=== PATIENT | female | born 1960 | race Asian ===

== ENCOUNTER → 2017-12-10 08:10 | Outpatient (CLI) | payer OTHER, SELFPAY ==
[2017-12-10 09:48] LABS: Creatinine Urine Random 72.6 mg/dL
[2017-12-10 09:50] LABS: Alanine Aminotransferase 30 IU/L (9-52); Albumin 4.2 g/dL (3.5-5.0); Albumin Globulin Ratio 1.2 (1.0-2.8); Alkaline Phosphatase 79 U/L (38-126); Aspartate Aminotransferase 25 IU/L (14-36); BUN Creatinine Ratio 18.3 (6-22); Bilirubin Total 1.1 mg/dL (0.2-1.3); Blood Urea Nitrogen 11 mg/dL (7-17); Calcium 9.1 mg/dL (8.4-10.2); Carbon Dioxide 28 mmol/L (22-32); Chloride 98 mmol/L (98-107); Cholesterol 175 mg/dL (140-199); Estimated Glomerular Filt Rate > 60.0 mL/min (>60); Globulin 3.4 g/dL (1.7-4.1); Glucose 117 mg/dL (70-100); HDL Cholesterol 46 mg/dL (40-60); HEMOLYSIS < 15 (0-50); LDL Cholesterol Calculated 96 mg/dL (<100); Potassium 4.4 mmol/L (3.4-5.1); Sodium 134 mmol/L (137-145); Total Protein 7.6 g/dL (6.3-8.2); Triglycerides 164 mg/dL (35-150)
[2017-12-10 09:54] LABS: Microalbumi Creatinin Ratio Ur 12.3 ug/mg CR (<30); Microalbumin Urine Random 0.9 mg/dL (0-1.6)
[2017-12-10 10:52] LABS: Hemoglobin A1C% w Est Avg Glu 6.3 % (4.0-6.0)
== END ==
PROVIDERS: PCP Family Medicine; Visit Provider Family Medicine
DX: E11.9 Type 2 diabetes mellitus without complications (principal)
CPT/HCPCS: 36415; 80053; 80061; 82043; 82570; 83036

== ENCOUNTER → 2018-01-23 15:06 | Outpatient (CLI) | payer OTHER, SELFPAY ==
--- NOTE | 2018-01-23 | DI.MG.S_ITS ---
BILATERAL DIGITAL SCREENING MAMMOGRAM 3D/2D WITH CAD: 01/23/2018 CLINICAL: Routine screening. Family history of breast cancer. Comparison is made to exams dated: 01/03/2017 mammogram, 12/08/2015 mammogram, and 11/22/2014 mammogram - [facility]. The tissue of both breasts is heterogeneously dense. This may lower the sensitivity of mammography. Current study was also evaluated with a Computer Aided Detection (CAD) system. There are post operative findings in the left breast. No significant masses, calcifications, or other findings are seen in either breast. There has been no significant interval change. IMPRESSION: NEGATIVE There is no mammographic evidence of malignancy. A 1 year screening mammogram is recommended. This exam was interpreted at Station ID: [id number]. NOTE: For mammograms, a report in lay terms will be sent to the patient. Approximately 15% of breast malignancies will not be visualized mammographically. In the management of a palpable breast mass, a negative mammogram must not discourage biopsy of a clinically suspicious lesion. Electronically Signed By: Robin herbert/luzmaria:01/24/2018 09:28:41 letter sent: Normal Exam ACR BI-RADS Category 1: Negative 3341F
== END ==
PROVIDERS: Family Provider Family Medicine; PCP Family Medicine; Visit Provider Family Medicine
DX: Z12.31 Encounter for screening mammogram for malignant neoplasm of breast (principal); Z80.3 Family history of malignant neoplasm of breast
CPT/HCPCS: 77063; 77067

== ENCOUNTER → 2018-04-08 09:14 | Outpatient (CLI) | payer OTHER, SELFPAY ==
[2018-04-08 10:39] LABS: Hemoglobin A1C% w Est Avg Glu 6.6 % (4.0-6.0)
== END ==
PROVIDERS: Family Medicine; PCP Internal Medicine; Visit Provider Internal Medicine
DX: E11.9 Type 2 diabetes mellitus without complications (principal)
CPT/HCPCS: 36415; 83036

== ENCOUNTER → 2018-08-05 08:38 | Outpatient (CLI) | payer OTHER, SELFPAY ==
[2018-08-05 10:16] LABS: Hemoglobin A1C% w Est Avg Glu 6.7 % (4.0-6.0)
== END ==
PROVIDERS: PCP Family Medicine; Visit Provider Family Medicine
DX: E11.9 Type 2 diabetes mellitus without complications (principal)
CPT/HCPCS: 36415; 83036

== ENCOUNTER → 2018-11-11 08:03 | Outpatient (CLI) | payer OTHER, SELFPAY ==
[2018-11-11 08:58] LABS: Hemoglobin A1C% w Est Avg Glu 6.6 % (4.0-6.0)
[2018-11-11 09:20] LABS: Creatinine Urine Random 44.1 mg/dL
[2018-11-11 09:24] LABS: Microalbumin Urine Random 1.5 mg/dL (0-1.6)
== END ==
PROVIDERS: PCP Family Medicine; Visit Provider Family Medicine
DX: E11.9 Type 2 diabetes mellitus without complications (principal)
CPT/HCPCS: 36415; 82043; 82570; 83036

== ENCOUNTER → 2019-02-24 07:29 | Outpatient (CLI) | payer OTHER, SELFPAY ==
[2019-02-24 09:22] LABS: Hemoglobin A1C% w Est Avg Glu 6.4 % (4.0-6.0)
== END ==
PROVIDERS: PCP Family Medicine; Visit Provider Family Medicine
DX: E11.9 Type 2 diabetes mellitus without complications (principal)
CPT/HCPCS: 36415; 83036

== ENCOUNTER → 2019-02-27 16:00 | Outpatient (CLI) | payer OTHER, SELFPAY ==
--- NOTE | 2019-02-27 | DI.MG.S_ITS ---
BILATERAL DIGITAL SCREENING MAMMOGRAM 3D/2D WITH CAD: 02/27/2019 CLINICAL: Routine screening. Family history of breast cancer. Comparison is made to exams dated: 01/23/2018 mammogram, 01/03/2017 mammogram, and 12/08/2015 mammogram - [facility]. The tissue of both breasts is heterogeneously dense. This may lower the sensitivity of mammography. Current study was also evaluated with a Computer Aided Detection (CAD) system. Parenchymal and skin scarring of the lateral left breast is stable to prior comparison exams. No significant masses, calcifications, or other findings are seen in either breast. There has been no significant interval change. IMPRESSION: There is no mammographic evidence of malignancy. A 1 year screening mammogram is recommended. This exam was interpreted at Station ID: [id number]. NOTE: For mammograms, a report in lay terms will be sent to the patient. Approximately 15% of breast malignancies will not be visualized mammographically. In the management of a palpable breast mass, a negative mammogram must not discourage biopsy of a clinically suspicious lesion. Electronically Signed By: Danny Almanza M.D. ecl/:02/27/2019 17:22:15 letter sent: Normal Exam ACR BI-RADS Category 2: Benign Finding(s) 3342F
== END ==
PROVIDERS: PCP Family Medicine; Visit Provider Family Medicine
DX: Z12.31 Encounter for screening mammogram for malignant neoplasm of breast (principal); Z80.3 Family history of malignant neoplasm of breast
CPT/HCPCS: 77063; 77067

== ENCOUNTER → 2019-10-27 08:35 | Outpatient (CLI) | payer OTHER, SELFPAY ==
[2019-10-27 10:07] LABS: Cholesterol 189 mg/dL (140-199); Glucose 131 mg/dL (80-110); HDL Cholesterol 44 mg/dL (40-60); LDL Cholesterol Calculated 111 mg/dL (<100); Triglycerides 169 mg/dL (35-150); VLDL Cholesterol Calculated 34 mg/dL (2-30)
[2019-10-27 10:11] LABS: Hemoglobin A1C% w Est Avg Glu 6.6 % (4.0-6.0)
== END ==
PROVIDERS: PCP Family Medicine; Referring Provider Family Medicine; Visit Provider Family Medicine
DX: E11.9 Type 2 diabetes mellitus without complications (principal); E78.5 Hyperlipidemia, unspecified
CPT/HCPCS: 36415; 80061; 82947; 83036

== ENCOUNTER → 2020-02-19 07:01 | Outpatient (CLI) | payer OTHER, SELFPAY ==
[2020-02-19 09:00] LABS: Hemoglobin A1C% w Est Avg Glu 6.7 % (4.0-6.0)
[2020-02-19 09:20] LABS: Microalbumin Urine Random 0.7 mg/dL (0-1.6)
== END ==
PROVIDERS: PCP Family Medicine; Referring Provider Family Medicine; Visit Provider Family Medicine
DX: E11.9 Type 2 diabetes mellitus without complications (principal)
CPT/HCPCS: 36415; 82043; 82570; 83036

== ENCOUNTER → 2020-07-01 16:25 | Outpatient (CLI) | payer OTHER, SELFPAY ==
[2020-07-01 17:48] LABS: Alanine Aminotransferase 19 IU/L (<35); Albumin 4.4 g/dL (3.5-5.0); Albumin Globulin Ratio 1.3 (1.0-2.8); Alkaline Phosphatase 88 U/L (38-126); Aspartate Aminotransferase 26 IU/L (14-36); Bilirubin Total 0.5 mg/dL (0.2-1.3); Blood Urea Nitrogen 17 mg/dL (7-17); Calcium 9.8 mg/dL (8.4-10.2); Carbon Dioxide 28 mmol/L (22-32); Chloride 98 mmol/L (98-107); Estimated Glomerular Filt Rate > 60.0 mL/min (>60); Globulin 3.5 g/dL (1.7-4.1); Glucose 89 mg/dL (80-110); HEMOLYSIS < 15 (0-50); Hemoglobin A1C% w Est Avg Glu 6.4 % (4.0-6.0); Potassium 4.6 mmol/L (3.4-5.1); Sodium 133 mmol/L (137-145); Total Protein 7.9 g/dL (6.3-8.2)
== END ==
PROVIDERS: PCP Family Medicine; Referring Provider Family Medicine; Visit Provider Family Medicine
DX: E11.9 Type 2 diabetes mellitus without complications (principal)
CPT/HCPCS: 36415; 80053; 83036

== ENCOUNTER → 2020-07-22 17:09 | Outpatient (CLI) | payer OTHER, SELFPAY ==
--- NOTE | 2020-07-22 17:10 | DI.MG.S_ITS ---
BILATERAL DIGITAL SCREENING MAMMOGRAM 3D/2D WITH CAD: 07/22/2020 CLINICAL: Routine screening. Family history of breast cancer. Comparison is made to exams dated: 02/27/2019 mammogram, 01/23/2018 mammogram, 01/03/2017 mammogram, 12/08/2015 mammogram, and 11/22/2014 mammogram - [facility]. The tissue of both breasts is heterogeneously dense. This may lower the sensitivity of mammography. Current study was also evaluated with a Computer Aided Detection (CAD) system. There are benign post operative findings in the left breast. No significant masses, calcifications, or other findings are seen in either breast. There has been no significant interval change. IMPRESSION: BENIGN There is no mammographic evidence of malignancy. A 1 year screening mammogram is recommended. This exam was interpreted at Station ID: [id number]. NOTE: For mammograms, a report in lay terms will be sent to the patient. Approximately 15% of breast malignancies will not be visualized mammographically. In the management of a palpable breast mass, a negative mammogram must not discourage biopsy of a clinically suspicious lesion. Electronically Signed By: Jhonny Bell M.D. [facility] [place]07/23/2020 07:49:40 letter sent: Normal Exam ACR BI-RADS Category 2: Benign Finding(s) 3342F
== END ==
PROVIDERS: PCP Family Medicine; Referring Provider Family Medicine; Visit Provider Family Medicine
DX: Z12.31 Encounter for screening mammogram for malignant neoplasm of breast (principal); Z80.3 Family history of malignant neoplasm of breast
CPT/HCPCS: 77063; 77067

== ENCOUNTER → 2020-08-29 10:36 | Outpatient (CLI) | payer OTHER, SELFPAY ==
[2020-08-29] MEDS: COVID-19 VACC #1, MRNA(MOD) 100 MCG/0.5 ML VIAL IM (10:41)
== END ==
PROVIDERS: PCP Family Medicine; Visit Provider Internal Medicine
DX: Z23 Encounter for immunization (principal)
CPT/HCPCS: 0011A; 91301

== ENCOUNTER → 2020-09-26 14:32 | Outpatient (CLI) | payer OTHER, SELFPAY ==
[2020-09-26] MEDS: COVID-19 VACC #2, MRNA(MOD) 100 MCG/0.5 ML VIAL IM (14:41)
== END ==
PROVIDERS: PCP Family Medicine; Visit Provider Internal Medicine
DX: Z23 Encounter for immunization (principal)
CPT/HCPCS: 0012A; 91301

== ENCOUNTER → 2020-10-09 16:10 | Outpatient (CLI) | payer OTHER, SELFPAY ==
[2020-10-09 18:23] LABS: Hemoglobin A1C% w Est Avg Glu 6.3 % (4.0-6.0)
== END ==
PROVIDERS: PCP Family Medicine; Referring Provider Family Medicine; Visit Provider Family Medicine
DX: E11.9 Type 2 diabetes mellitus without complications (principal)
CPT/HCPCS: 36415; 83036

== ENCOUNTER → 2020-12-03 08:03 | Outpatient (CLI) | payer OTHER, SELFPAY ==
[2020-12-03 12:05] LABS: COVID19 -Nasal RAPID Negative (Negative)
== END ==
PROVIDERS: PCP Family Medicine; Visit Provider Physician Assistant
DX: Z01.812 Encounter for preprocedural laboratory examination (principal); Z20.822 Contact with and (suspected) exposure to COVID-19
CPT/HCPCS: 87635

== ENCOUNTER 2020-12-05 11:33 | Day surgery (SDC) | payer OTHER, SELFPAY ==
--- NOTE | 2020-12-05 12:03 | PM.HP.1 ---
History of Present Illness History of Present Illness Date Patient Seen: 12/05/20 Chief complaint: [facility] Narrative: 60 Years Old Female seen today for consideration of a screening colonoscopy. Last colonoscopy 2009, normal. There have been no lower GI symptoms suggesting disease such as change in bowel habits, bleeding, abdominal pain or anemia. There's been no family history of colon cancer or colon polyps. Overall health issues have been stable, including no major cardiac events for at least 6 weeks. Past Medical History: No systemic HRT DIABETES MELLITUS, TYPE II HYPERTENSION HYPERLIPIDEMIA Past Surgical History: Colonoscopy, 2009, normal Family History: Father: age 75 - Heart Disease, Stroke, Hypertension, Hyperlipidemia Mother: age 84 - Diabetes, Hypertension, Hyperlipidemia Siblings: 63 y o sister had a biopsy breast possible cancer, had 6 months of chemo, no surgery. And is cancer free. 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 Education: College Graduate Meds Home Medications and Allergies Home Medications Medication Instructions Recorded Confirmed Type CHOLECALCIFEROL (VITAMIN D3) #0 02/09/13 History (Vitamin D3) Metformin Hydrochloride 1,000 mg #0 02/09/13 History (GLUCOPHAGE) Vitamin E (VITAMIN E) #0 02/09/13 History [CENTRUM] #0 02/09/13 History [PREVASTATIN] #0 02/09/13 History aspirin 81 mg chewable tablet 81 mg PO QDAY #0 02/09/13 12/05/20 History Allergies Allergy/AdvReac Type Severity Reaction Status Date / Time Penicillins Allergy Unknown Unverified 09/07/17 13:09 Review of Systems Review of Systems Narrative: See HPI. Exam Narrative Exam Narrative: General: well developed, well nourished, in no acute distress, Head: normocephalic and atraumatic, Lungs: normal respiratory effort, clear bilaterally to auscultation, no wheezes rales or rhonchi. Heart: normal rate and regular rhythm, no murmurs, rubs, gallops, or clicks, Abdomen: abdomen soft and non-tender without masses, organomegaly, or abdominal wall hernias, bowel sounds positive. Skin: intact without suspicious lesions or rashes, Psych: alert and cooperative; normal mood and affect; normal attention span and concentration; cognition, remote and recent memory appear to be intact, Assessment & Plan Assessment & Plan narrative: 1. Screening for colon cancer Plan for colonoscopy. The nature and character of the procedure as well as anticipated results were discussed. The possibility of not completing the procedure was also discussed. Possible complications including aspiration pneumonia, bleeding, perforation and reaction to medications either for sedation or preparation and missed lesions were discussed. Questions were answered and proceeding to the colonoscopy was elected. Informed consent signed. I sincerely appreciate the referral allowing me to participate in this patient's care. Please contact me with any questions or concerns.
--- NOTE | 2020-12-05 12:04 | PM.OP.ENDO ---
Operative Date/Time/Diagnoses Date of procedure: 12/05/20 Procedure Notes SCOAP/Timeout: 1:47 p.m. Procedure in detail: ENDOSCOPIST: Cindy Motta MD Sedation RN: Phillip Mcallister RN Sedation start time: 1:48 p.m. Sedation end time: 2:07 p.m. PROCEDURE: Colonoscopy INDICATIONS: 1. Screening for colon cancer MEDICATION: Levsin 0.125 mg sublingual, incremental doses of Versed and fentanyl until appropriate level sedation achieved. ASA CLASS: 2 CECAL WITHDRAWAL TIME: 10 minutes COMPLICATIONS: None. EXTENT OF PROCEDURE: Cecum. QUALITY OF PREP: Good with portions of liquid stool. PROCEDURE: Prior to insertion of the colonoscope, a digital rectal examination was accomplished with circumferential palpation of the distal rectal mucosa without significant findings being noted. The high-definition pediatric colonoscope was passed into the rectum in the usual fashion and advanced over to the cecum without difficulty. The ileocecal valve, appendiceal stoma, and medial wall all could be inspected and no abnormalities were seen. ASCENDING COLON: As the colonoscope was withdrawn, care was taken to expose and inspect the haustral folds and no abnormalities were seen. HEPATIC FLEXURE: Normal, no polyps, diverticula or other abnormalities. TRANSVERSE COLON: Normal, no polyps, diverticula or other abnormalities. DESCENDING COLON: Normal, no polyps, diverticula or other abnormalities. SIGMOID COLON: Normal, no polyps, diverticula or other abnormalities. RECTUM: Normal. J maneuver was produced. There was no significant perianal disease. The J maneuver was broken. The remainder of the rectum was inspected and there was no external hemorrhoid disease. The scope was withdrawn. IMPRESSION: 1. Normal colonoscopy PLAN: 1. Repeat colonoscopy in 10 years. The possibility of a missed lesion including a malignancy has been discussed with the patient previously. Potential alarm symptoms have been discussed and should be reported immediately.
[2020-12-05 13:09] VITALS: BP 157/66; PULSE 75; RESP 15; TEMP 36.1; O2SAT 100; BMI 21.5
[2020-12-05] MEDS: LACTATED RINGERS 1,000 ML 200 ML IV (13:23)
[2020-12-05 14:10] VITALS: BP 118/58; PULSE 82; RESP 14; TEMP 37.3; O2SAT 99
[2020-12-05] MEDS: fentaNYL 250 MCG/5 ML INJ IV (14:10)
[2020-12-05] MEDS: MIDAZOLAM 5 MG/5 ML VIAL IV (14:11)
[2020-12-05 14:15] VITALS: BP 132/59; PULSE 77; RESP 12; O2SAT 99
[2020-12-05 14:22] VITALS: PULSE 71; RESP 14; TEMP 36.4; O2SAT 100
[2020-12-05 14:36] VITALS: BP 134/64; PULSE 67; RESP 13; TEMP 36.4; O2SAT 100
== END 2020-12-05 14:37 | disposition home or self-care (01) ==
PROVIDERS: PCP Family Medicine; Referring Provider Student in an Organized Health Care Education/Training Program; Visit Provider Student in an Organized Health Care Education/Training Program
PROC: 0DJD8ZZ Inspection of Lower Intestinal Tract, Via Natural or Artificial Opening Endoscopic (ICD-10-PCS; CPT 45378; principal; 2020-12-05 13:45)
DX: Z12.11 Encounter for screening for malignant neoplasm of colon (principal); E11.9 Type 2 diabetes mellitus without complications; Z79.84 Long term (current) use of oral hypoglycemic drugs; I10 Essential (primary) hypertension; E78.5 Hyperlipidemia, unspecified
CPT/HCPCS: 45378; J2250; J3010

== ENCOUNTER → 2021-01-31 08:43 | Outpatient (CLI) | payer OTHER, SELFPAY ==
[2021-01-31 09:37] LABS: Hemoglobin A1C% w Est Avg Glu 7.2 % (4.0-6.0)
[2021-01-31 09:43] LABS: Cholesterol 185 mg/dL (140-199); HDL Cholesterol 51 mg/dL (40-60); LDL Cholesterol Calculated 109 mg/dL (<100); Triglycerides 126 mg/dL (35-150); VLDL Cholesterol Calculated 25 mg/dL (2-30)
== END ==
PROVIDERS: PCP Family Medicine; Referring Provider Family Medicine; Visit Provider Family Medicine
DX: E11.9 Type 2 diabetes mellitus without complications (principal); E78.5 Hyperlipidemia, unspecified; I10 Essential (primary) hypertension
CPT/HCPCS: 36415; 80061; 83036

== ENCOUNTER → 2021-06-02 16:18 | Outpatient (CLI) | payer OTHER, SELFPAY ==
[2021-06-02 17:42] LABS: Creatinine Urine Random 29.5 mg/dL
[2021-06-02 17:46] LABS: Microalbumi Creatinin Ratio Ur 71.1 ug/mg CR (<30); Microalbumin Urine Random 2.1 mg/dL (0-1.6)
[2021-06-02 18:25] LABS: Hemoglobin A1C% w Est Avg Glu 7.7 % (4.0-6.0)
== END ==
PROVIDERS: PCP Family Medicine; Referring Provider Family Medicine; Visit Provider Family Medicine
DX: E11.9 Type 2 diabetes mellitus without complications (principal); Z78.9 Other specified health status
CPT/HCPCS: 36415; 82043; 82570; 83036; 87522

== ENCOUNTER → 2021-09-17 16:29 | Outpatient (CLI) | payer OTHER, SELFPAY ==
[2021-09-17 19:17] LABS: Hemoglobin A1C% w Est Avg Glu 6.8 % (4.0-6.0)
[2021-09-17 19:41] LABS: Hep C Virus Ab w/Reflex Quant NEGATIVE s/c (NEGATIVE)
== END ==
PROVIDERS: PCP Family Medicine; Referring Provider Family Medicine; Visit Provider Family Medicine
DX: E11.9 Type 2 diabetes mellitus without complications (principal); Z78.9 Other specified health status
CPT/HCPCS: 36415; 83036; 86803

== ENCOUNTER → 2021-11-18 15:54 | Outpatient (CLI) | payer OTHER, SELFPAY ==
--- NOTE | 2021-11-18 15:56 | DI.MG.S_ITS ---
BILATERAL DIGITAL SCREENING MAMMOGRAM 3D/2D WITH CAD: 11/18/2021 CLINICAL: Routine screening. Family history of breast cancer. Comparison is made to exams dated: 07/22/2020 mammogram, 02/27/2019 mammogram, and 01/23/2018 mammogram - . The tissue of both breasts is heterogeneously dense. This may lower the sensitivity of mammography. Current study was also evaluated with a Computer Aided Detection (CAD) system. There are benign post operative findings in the left breast. No significant masses, calcifications, or other findings are seen in either breast. There has been no significant interval change. IMPRESSION: BENIGN There is no mammographic evidence of malignancy. A 1 year screening mammogram is recommended. This exam was interpreted at Station ID: [id number]. NOTE: For mammograms, a report in lay terms will be sent to the patient. Approximately 15% of breast malignancies will not be visualized mammographically. In the management of a palpable breast mass, a negative mammogram must not discourage biopsy of a clinically suspicious lesion. Electronically Signed By: Dawood vance/luzmaria:11/19/2021 09:01:41 letter sent: Normal Exam ACR BI-RADS Category 2: Benign Finding(s) 3342F
== END ==
PROVIDERS: PCP Family Medicine; Referring Provider Family Medicine; Visit Provider Family Medicine
DX: Z12.31 Encounter for screening mammogram for malignant neoplasm of breast (principal); Z80.3 Family history of malignant neoplasm of breast
CPT/HCPCS: 77063; 77067

== ENCOUNTER → 2022-02-24 08:32 | Outpatient (CLI) | payer OTHER, SELFPAY ==
[2022-02-24 09:53] LABS: Hemoglobin A1C% w Est Avg Glu 6.7 % (4.0-6.0)
[2022-02-24 10:11] LABS: Alanine Aminotransferase 26 IU/L (<35); Albumin 4.4 g/dL (3.5-5.0); Albumin Globulin Ratio 1.3 (1.0-2.8); Alkaline Phosphatase 78 U/L (38-126); Aspartate Aminotransferase 29 IU/L (14-36); BUN Creatinine Ratio 15.8 (6-22); Bilirubin Total 0.7 mg/dL (0.2-1.3); Blood Urea Nitrogen 9 mg/dL (7-17); Calcium 9.5 mg/dL (8.4-10.2); Carbon Dioxide 28 mmol/L (22-32); Chloride 95 mmol/L (98-107); Estimated Glomerular Filt Rate > 60 mL/min (>60); Globulin 3.5 g/dL (1.7-4.1); Glucose 127 mg/dL (80-110); HEMOLYSIS < 15 (0-50); Potassium 4.9 mmol/L (3.4-5.1); Sodium 133 mmol/L (137-145); Total Protein 7.9 g/dL (6.3-8.2)
[2022-02-27 16:55] LABS: LDL Cholesterol Direct 124 mg/dL (<100)
== END ==
PROVIDERS: PCP Family Medicine; Referring Provider Family Medicine; Visit Provider Family Medicine
DX: E11.9 Type 2 diabetes mellitus without complications (principal); E78.5 Hyperlipidemia, unspecified; I10 Essential (primary) hypertension
CPT/HCPCS: 36415; 80053; 80061; 83036; 83721

== ENCOUNTER → 2022-07-22 16:08 | Outpatient (CLI) | payer OTHER, SELFPAY ==
[2022-07-22 18:24] LABS: Creatinine Urine Random 39.4 mg/dL
[2022-07-22 18:28] LABS: Microalbumi Creatinin Ratio Ur 109.1 ug/mg CR (<30); Microalbumin Urine Random 4.3 mg/dL (0-1.6)
[2022-07-22 18:46] LABS: Hep C Virus Ab w/Reflex Quant NEGATIVE s/c (NEGATIVE)
[2022-07-22 19:20] LABS: Hemoglobin A1C% w Est Avg Glu 7.3 % (4.0-6.0)
== END ==
PROVIDERS: PCP Family Medicine; Referring Provider Family Medicine; Visit Provider Family Medicine
DX: E11.9 Type 2 diabetes mellitus without complications (principal); Z78.9 Other specified health status
CPT/HCPCS: 36415; 82043; 82570; 83036; 86803

== ENCOUNTER → 2022-08-23 16:19 | Outpatient (CLI) | payer OTHER, SELFPAY ==
[2022-08-27 16:43] LABS: ANA Screen, IFA Negative (.)
== END ==
PROVIDERS: PCP Family Medicine; Referring Provider Dermatology; Visit Provider Dermatology
DX: L56.4 Polymorphous light eruption (principal)
CPT/HCPCS: 36415; 86038

== ENCOUNTER → 2022-12-11 09:05 | Outpatient (CLI) | payer OTHER, SELFPAY ==
[2022-12-12 09:36] LABS: x Labcorp Estim. Avg Glu (eAG) 160 mg/dL (.); x Labcorp Hemoglobin A1c 7.2 % (4.8-5.6)
== END ==
PROVIDERS: PCP Family Medicine; Referring Provider Family Medicine; Visit Provider Family Medicine
DX: E11.9 Type 2 diabetes mellitus without complications (principal)
CPT/HCPCS: 36415; 83036

== ENCOUNTER → 2023-03-19 08:05 | Outpatient (CLI) | payer OTHER, SELFPAY ==
[2023-03-19 09:29] LABS: Alanine Aminotransferase 28 IU/L (<35); Albumin 4.3 g/dL (3.5-5.0); Albumin Globulin Ratio 1.3 (1.0-2.8); Alkaline Phosphatase 79 U/L (38-126); Aspartate Aminotransferase 30 IU/L (14-36); BUN Creatinine Ratio 18.3 (6-22); Blood Urea Nitrogen 11 mg/dL (7-17); Calcium 9.8 mg/dL (8.4-10.2); Carbon Dioxide 25 mmol/L (22-32); Chloride 97 mmol/L (98-107); Cholesterol 186 mg/dL (140-199); Estimated Glomerular Filt Rate > 60 mL/min (>60); Globulin 3.4 g/dL (1.7-4.1); Glucose 124 mg/dL (80-110); HDL Cholesterol 53 mg/dL (40-60); HEMOLYSIS < 15 (0-50); LDL Cholesterol Calculated 113 mg/dL (<100); Potassium 5.3 mmol/L (3.4-5.1); Sodium 131 mmol/L (137-145); Total Protein 7.7 g/dL (6.3-8.2); Triglycerides 101 mg/dL (35-150); VLDL Cholesterol Calculated 20 mg/dL (2-30)
[2023-03-19 09:58] LABS: TSH w/ Reflex to FT4 1.01 uIU/mL (0.47-4.68)
[2023-03-19 12:15] LABS: Free T4, Direct Thyroxine 1.44 ng/dL (0.78-2.19)
== END ==
PROVIDERS: PCP Family Medicine; Referring Provider Family Medicine; Visit Provider Family Medicine
DX: E11.9 Type 2 diabetes mellitus without complications (principal); Z00.00 Encounter for general adult medical examination without abnormal findings
CPT/HCPCS: 36415; 80053; 80061; 84439; 84443

== ENCOUNTER → 2023-04-12 16:30 | Outpatient (CLI) | payer OTHER, SELFPAY ==
[2023-04-12 17:36] LABS: BUN Creatinine Ratio 22.8 (6-22); Blood Urea Nitrogen 13 mg/dL (7-17); Carbon Dioxide 30 mmol/L (22-32); Chloride 95 mmol/L (98-107); Estimated Glomerular Filt Rate > 60 mL/min (>60); Glucose 105 mg/dL (80-110); HEMOLYSIS < 15 (0-50); Potassium 4.3 mmol/L (3.4-5.1); Sodium 131 mmol/L (137-145)
[2023-04-12 23:15] LABS: Hemoglobin A1C% w Est Avg Glu 7.5 % (4.0-6.0)
== END ==
PROVIDERS: PCP Family Medicine; Referring Provider Family Medicine; Visit Provider Family Medicine
DX: E11.9 Type 2 diabetes mellitus without complications (principal); E87.5 Hyperkalemia
CPT/HCPCS: 36415; 80048; 83036

== ENCOUNTER → 2023-06-29 16:57 | Outpatient (CLI) | payer OTHER, SELFPAY ==
--- NOTE | 2023-06-29 16:59 | DI.RAD.S_ITS ---
PROCEDURE: XR SHOULDER LT MIN 2V INDICATIONS: Left shoulder pain L I TECHNIQUE: 3 views of the shoulder were acquired. COMPARISON: None. FINDINGS: Bones: No fractures or dislocations. No suspicious bony lesions. Visualized ribs appear intact. Soft tissues: No suspicious soft tissue calcifications. IMPRESSION: No acute bony abnormality. No significant degenerative change. Dictated by: Daniel Newell M.D. on 06/30/2023 at 1:14 Approved by: Daniel Newell M.D. on 06/30/2023 at 1:15
== END ==
PROVIDERS: PCP Family Medicine; Referring Provider Nurse Practitioner Family; Visit Provider Nurse Practitioner Family
DX: S46.912A Strain of unspecified muscle, fascia and tendon at shoulder and upper arm level, left arm, initial encounter (principal); X58.XXXA Exposure to other specified factors, initial encounter
CPT/HCPCS: 73030

== ENCOUNTER → 2023-07-21 | Outpatient (CLI) | payer OTHER, SELFPAY ==
--- NOTE | 2023-07-21 | DI.MRI.S_ITS ---
PROCEDURE: MR SHOULDER LT WO CON INDICATIONS: left shoulder pain TECHNIQUE: Noncontrast oblique coronal T2 fast spin echo with fat saturation, oblique sagittal T1 spin echo and T2 fast spin echo with fat saturation, axial T1 spin echo and T2 fast spin echo with fat saturation through the shoulder. COMPARISON: [facility], CR, XR SHOULDER LT MIN 2V, 06/29/2023, 17:05. FINDINGS: Image quality: Excellent. Rotator cuff: There is [id number] supraspinatus, infraspinatus, and subscapularis tendinosis. Low-grade partial-thickness supraspinatus tendon tear from the musculotendinous junction to the footprint. No tendon retraction. Sagittal images demonstrate no rotator cuff muscle atrophy. Bones and bursae: No bone marrow contusions or fractures. Mild acromioclavicular and glenohumeral joint degeneration. The acromion demonstrates conventional anatomy, without an os acromiale. No pathologic subacromial-subdeltoid or subcoracoid bursal fluid is present. Capsule and soft tissues: There is posterior labral tear. Multiple paralabral cyst is seen adjacent to the posterior labrum. There is superior labral fraying. The long head of the biceps tendon demonstrates normal location and morphology. The rotator interval appears irregular. The coracohumeral ligament is thickened. IMPRESSION: 1. [id number] supraspinatus, infraspinatus and subscapularis tendinosis. There is low-grade partial-thickness tear of the supraspinatus tendon. No tendon retraction. No rotator cuff muscle atrophy. 2. Posterior labral tear with multiple paralabral cyst. 3. Mild acromioclavicular and glenohumeral joint degeneration. 4. Irregular rotator interval and thickening of the coracohumeral ligament. The findings are associated with adhesive capsulitis. Recommend clinical correlation. Dictated by: Ciera Connolly M.D. on 07/22/2023 at 13:58 Approved by: Ciera Connolly M.D. on 07/22/2023 at 14:06
== END ==
PROVIDERS: PCP Family Medicine; Referring Provider Pain Medicine Interventional Pain Medicine; Visit Provider Pain Medicine Interventional Pain Medicine
DX: S46.012A Strain of muscle(s) and tendon(s) of the rotator cuff of left shoulder, initial encounter (principal); S43.492A Other sprain of left shoulder joint, initial encounter; M19.012 Primary osteoarthritis, left shoulder; X58.XXXA Exposure to other specified factors, initial encounter
CPT/HCPCS: 73221

== ENCOUNTER → 2023-09-03 08:39 | Outpatient (CLI) | payer OTHER, SELFPAY ==
[2023-09-03 10:09] LABS: Hemoglobin A1C% w Est Avg Glu 7.7 % (4.0-6.0)
[2023-09-03 10:17] LABS: BUN Creatinine Ratio 25.9 (6-22); Blood Urea Nitrogen 14 mg/dL (7-17); Calcium 9.3 mg/dL (8.4-10.2); Carbon Dioxide 28 mmol/L (22-32); Chloride 100 mmol/L (98-107); Estimated Glomerular Filt Rate > 60 mL/min (>60); Glucose 135 mg/dL (80-110); HEMOLYSIS < 15 (0-50); Potassium 4.6 mmol/L (3.4-5.1); Sodium 130 mmol/L (137-145)
== END ==
PROVIDERS: PCP Family Medicine; Referring Provider Family Medicine; Visit Provider Family Medicine
DX: E87.5 Hyperkalemia (principal); E11.9 Type 2 diabetes mellitus without complications
CPT/HCPCS: 36415; 80048; 83036

== ENCOUNTER → 2023-10-10 16:45 | Outpatient (CLI) | payer OTHER, SELFPAY ==
--- NOTE | 2023-10-10 16:46 | DI.MRI.S_ITS ---
PROCEDURE: MR CERVICAL SPINE WO CON INDICATIONS: CERVICAL SPRAIN TECHNIQUE: Noncontrast sagittal T1 spin echo and T2 fast spin echo, sagittal STIR, foraminal oblique sagittal T2 fast spin echo, and axial gradient echo or T2 fast spin echo through the cervical spine. COMPARISON: None. FINDINGS: Image quality: Excellent. Alignment and Curvature: There is normal bony alignment. Bone Marrow: Marrow demonstrates normal overall signal. Spinal Cord: Visualized spinal cord has normal size and signal. No cerebellar tonsillar herniation. Paraspinous Soft Tissues: No paravertebral masses. Prevertebral soft tissues are normal in thickness. C2-C3: Prominent left facet hypertrophy. No canal stenosis. Moderate to severe left foraminal narrowing with a degree of left foraminal C3 nerve root impingement. C3-C4: Prominent right facet hypertrophy. No canal stenosis. Moderate right foraminal narrowing with flattening deformity on the exiting right C4 nerve root. C4-C5: Disc bulge. Mild right foraminal narrowing. No canal stenosis or significant foraminal stenosis. C5-C6: Disc bulge. No canal stenosis. No significant foraminal stenosis. C6-C7: Mild disc bulge. No canal stenosis. Bilateral uncovertebral joint hypertrophy. Left foraminal disc bulge. Moderate to severe left foraminal narrowing with a degree of left foraminal C7 nerve root impingement. C7-T1: No canal stenosis or foraminal stenosis. IMPRESSION: 1. No canal stenosis. 2. No ligamentous injury identified. 3. Bilateral cervical facet arthropathy, prominent on the left at C2-C3 and prominent on the right at C3-C4. 4. There is moderate to severe left foraminal narrowing at C2-C3. There is moderate right foraminal narrowing at C3-C4. There is moderate to severe left foraminal narrowing at C6-C7. Recommend correlation for presence or absence of associated radicular symptoms. Dictated by: Spenser Allan M.D. on 10/11/2023 at 8:36 Approved by: Spenser Allan M.D. on 10/11/2023 at 8:55
== END ==
PROVIDERS: PCP Family Medicine; Referring Provider Pain Medicine Interventional Pain Medicine; Visit Provider Pain Medicine Interventional Pain Medicine
DX: S46.912A Strain of unspecified muscle, fascia and tendon at shoulder and upper arm level, left arm, initial encounter (principal); M47.812 Spondylosis without myelopathy or radiculopathy, cervical region; M48.02 Spinal stenosis, cervical region; X58.XXXA Exposure to other specified factors, initial encounter
CPT/HCPCS: 72141

== ENCOUNTER → 2023-11-12 08:30 | Outpatient (CLI) | payer OTHER, SELFPAY ==
[2023-11-12 09:54] LABS: Hemoglobin A1C% w Est Avg Glu 7.5 % (4.0-6.0)
[2023-11-12 10:23] LABS: Alanine Aminotransferase 26 IU/L (<35); Albumin 4.3 g/dL (3.5-5.0); Albumin Globulin Ratio 1.4 (1.0-2.8); Alkaline Phosphatase 84 U/L (38-126); Aspartate Aminotransferase 25 IU/L (14-36); BUN Creatinine Ratio 19.4 (6-22); Bilirubin Total 0.8 mg/dL (0.2-1.3); Blood Urea Nitrogen 12 mg/dL (7-17); Calcium 9.5 mg/dL (8.4-10.2); Carbon Dioxide 28 mmol/L (22-32); Chloride 98 mmol/L (98-107); Estimated Glomerular Filt Rate > 60 mL/min (>60); Globulin 3.1 g/dL (1.7-4.1); Glucose 160 mg/dL (80-110); HEMOLYSIS < 15 (0-50); Sodium 130 mmol/L (137-145); Total Protein 7.4 g/dL (6.3-8.2)
[2023-11-12 10:24] LABS: Potassium 5.6 mmol/L (3.4-5.1)
== END ==
PROVIDERS: PCP Family Medicine; Referring Provider Family Medicine; Visit Provider Family Medicine
DX: E87.1 Hypo-osmolality and hyponatremia (principal); B35.1 Tinea unguium; E11.9 Type 2 diabetes mellitus without complications
CPT/HCPCS: 36415; 80053; 83036

== ENCOUNTER → 2023-11-24 16:31 | Outpatient (CLI) | payer OTHER, SELFPAY ==
[2023-11-24 17:56] LABS: BUN Creatinine Ratio 28.4 (6-22); Blood Urea Nitrogen 19 mg/dL (7-17); Calcium 9.5 mg/dL (8.4-10.2); Carbon Dioxide 27 mmol/L (22-32); Chloride 97 mmol/L (98-107); Estimated Glomerular Filt Rate > 60 mL/min (>60); Glucose 103 mg/dL (80-110); HEMOLYSIS < 15 (0-50); Potassium 4.7 mmol/L (3.4-5.1); Sodium 129 mmol/L (137-145)
== END ==
PROVIDERS: PCP Family Medicine; Referring Provider Family Medicine; Visit Provider Family Medicine
DX: E87.5 Hyperkalemia (principal)
CPT/HCPCS: 36415; 80048

== ENCOUNTER → 2023-12-22 16:03 | Outpatient (CLI) | payer OTHER, SELFPAY ==
--- NOTE | 2023-12-22 16:04 | DI.US.S_ITS ---
PROCEDURE: US PELVIC COMPLETE INDICATIONS: RIGHT LOWER QUADRANT ABDOMINAL PAIN TECHNIQUE: Real-time scanning was performed of the pelvic organs, with image documentation. Additional endovaginal scanning was necessary due to incomplete visualization of the adnexal and endometrial structures by transabdominal scanning. COMPARISON: None. FINDINGS: Uterus: Uterus is normal in size at 6.2 x 2.4 x 3.6 cm. The myometrium is heterogeneous.. The endometrium measures 2.1 mm combined thickness. Nabothian cysts are present. Ovaries: The ovaries could not be visualized on this examination. No adnexal masses are seen. Other: No pathologic free abdominal or pelvic fluid. IMPRESSION: Heterogeneity of the myometrium. The ovaries were not visualized. We strive to produce accurate, complete, and clear reports of imaging services. To assist us in improving patient care, this report was composed using standard report templates and voice recognition software. Therefore, it may contain abnormal punctuation, insertions and/or omissions. Occasional wrong-word or sound-alike substitutions may occur. Though we review the report and make efforts to correct it, we do recommend that the report be read carefully in proper context to recognize any text inaccuracies. Dictated by: Andrea Shane M.D. on 12/22/2023 at 17:03 Approved by: Andrea Shane M.D. on 12/22/2023 at 17:10
== END ==
PROVIDERS: PCP Family Medicine; Referring Provider Family Medicine; Visit Provider Family Medicine
DX: N88.8 Other specified noninflammatory disorders of cervix uteri (principal); R10.31 Right lower quadrant pain
CPT/HCPCS: 76856

== ENCOUNTER → 2024-02-11 07:36 | Outpatient (CLI) | payer OTHER, SELFPAY ==
[2024-02-11 15:32] LABS: Hemoglobin A1C% w Est Avg Glu 7.4 % (4.0-6.0)
== END ==
PROVIDERS: PCP Family Medicine; Referring Provider Family Medicine; Visit Provider Family Medicine
DX: E11.9 Type 2 diabetes mellitus without complications (principal)
CPT/HCPCS: 83036

== ENCOUNTER → 2024-03-24 10:15 | Outpatient (CLI) | payer OTHER, SELFPAY ==
[2024-03-24 11:31] LABS: Hemoglobin A1C% w Est Avg Glu 8.2 % (4.0-6.0)
== END ==
PROVIDERS: PCP Family Medicine; Referring Provider Family Medicine; Visit Provider Family Medicine
DX: E11.9 Type 2 diabetes mellitus without complications (principal)
CPT/HCPCS: 36415; 83036

== ENCOUNTER → 2024-03-28 16:11 | Outpatient (CLI) | payer OTHER, SELFPAY ==
--- NOTE | 2024-03-28 16:12 | DI.MG.S_ITS ---
BILATERAL DIGITAL SCREENING MAMMOGRAM 3D/2D WITH CAD: 03/28/2024 CLINICAL: Routine screening. Family history of breast cancer. Comparison is made to exams dated: 11/18/2021 mammogram, 07/22/2020 mammogram, 02/27/2019 mammogram, and 01/23/2018 mammogram - [facility]. The breasts are heterogeneously dense, which may obscure small masses (category c / 51-75% glandular tissue). Current study was also evaluated with a Computer Aided Detection (CAD) system. There are benign post operative findings in the left breast. No significant masses, calcifications, or other findings are seen in either breast. There has been no significant interval change. IMPRESSION: BENIGN There is no mammographic evidence of malignancy. A 1 year screening mammogram is recommended. Based on Tyrer-Cuzick model (a risk assessment model), the patient's lifetime risk is 20.4% and her 10 year risk is 9.8%. If a patient has an elevated risk, a more comprehensive evaluation should be considered and/or a referral to a genetic counselor. The [place] [employer], [employer], and NCCN Guidelines advise the consideration of Breast MRI as an adjunct to screening mammography in patients whose Lifetime risk to develop breast cancer is 20% or higher. This exam was interpreted at Station ID: [id number]. NOTE: For mammograms, a report in lay terms will be sent to the patient. Approximately 15% of breast malignancies will not be visualized mammographically. In the management of a palpable breast mass, a negative mammogram must not discourage biopsy of a clinically suspicious lesion. Electronically Signed By: Jhonny petersen/luzmaria:03/29/2024 17:39:16 letter sent: Normal Exam ACR BI-RADS Category 2: Benign
== END ==
PROVIDERS: PCP Family Medicine; Referring Provider Family Medicine; Visit Provider Family Medicine
DX: Z12.31 Encounter for screening mammogram for malignant neoplasm of breast (principal); Z80.3 Family history of malignant neoplasm of breast; R92.333 Mammographic heterogeneous density, bilateral breasts
CPT/HCPCS: 77063; 77067

== ENCOUNTER → 2024-05-07 15:45 | Outpatient (CLI) | payer OTHER, SELFPAY ==
--- NOTE | 2024-05-07 15:46 | DI.MRI.S_ITS ---
BREAST MRI OF BOTH BREASTS: 05/07/2024 CLINICAL: Dense Breast. Comparison is made to exams dated: 03/28/2024 mammogram, 11/18/2021 mammogram, and 07/22/2020 mammogram - [facility]. INDICATIONS: DENSE BREAST TISSUE / GENETIC SUSEPTIBILITY TECHNIQUE: The patient was placed prone in a dedicated breast imaging coil. Precontrast axial STIR and 3D FLASH without fat saturation sequences were obtained. Both before and after bolus injection of contrast, sequential 1-minute axial 3D FLASH with fat saturation sequences for 3 time points, with subtraction images and maximum intensity projections (MIP's) generated. Delayed sagittal FLASH images with fat saturation were also obtained. Computer-aided detection, including computer algorithm analysis of MRI image data for lesion detection and characterization, pharmacokinetic analysis, with further physician review for interpretation, was performed. FINDINGS: Image quality: Excellent. There is moderate background parenchymal enhancement. There are heterogeneous fibroglandular elements in both breasts. Right breast: No suspicious mass or abnormal non-mass enhancement. No significantly enlarged axillary or internal mammary lymphadenopathy. Left breast: No suspicious mass or abnormal non-mass enhancement. No significantly enlarged axillary or internal mammary lymphadenopathy. Miscellaneous: Included portions of the anterior chest and upper abdomen demonstrate no significant abnormality. IMPRESSION: NEGATIVE No MR evidence of malignancy in the right or left breast. No axillary or internal mammary lymphadenopathy. BIRADS 1: Negative. Recommend continued annual high risk screening schedule with annual mammograms and annual breast MRI on alternating 6 month basis. COMMENT: The imaging literature indicates that a negative contrast breast MRI examination has a high sensitivity and a moderate specificity for detecting and excluding invasive carcinomas to a detection threshold of 3-5 mm; nonetheless, appropriate clinical and mammographic follow-up are recommended. MRI is not sensitive for detecting DCIS (ductal carcinoma in situ) and may not detect large invasive neoplasms that show only minimal enhancement such as mucinous carcinoma. If there are suspicious calcifications or clinically worrisome palpable masses, then biopsy should still be considered. Invasive neoplasms can be hidden by co-existent and benign enhancement caused by mastitis, hormone therapy effects, radiation therapy, , and recent biopsy or surgery. False positive examinations can occur in a number of circumstances, including breasts that have recently been subject to invasive procedures and those that contain atypical ductal hyperplasia, hormonally stimulated glandular tissue, fat necrosis, or radial scars. A 1 year screening mammogram and a breast MRI is recommended. Future imaging is recommended as follows: 03/29/2025 screening mammogram. This exam was interpreted at Station ID: [id number]. Electronically Signed By: Dawood Martinez M.D. ar/:05/10/2024 09:19:13 letter sent: Normal Exam ACR BI-RADS Category 1: Negative
== END ==
PROVIDERS: PCP Family Medicine; Referring Provider Family Medicine; Visit Provider Family Medicine
DX: R92.343 Mammographic extreme density, bilateral breasts (principal); Z15.01 Genetic susceptibility to malignant neoplasm of breast
CPT/HCPCS: 77049; A9579

== ENCOUNTER → 2024-06-06 15:23 | Outpatient (CLI) | payer OTHER, SELFPAY ==
[2024-06-06 16:38] LABS: Hemoglobin A1C% w Est Avg Glu 7.1 % (4.0-6.0)
== END ==
LOC: LAB 15:24
PROVIDERS: PCP Family Medicine; Referring Provider Family Medicine; Visit Provider Family Medicine
DX: E11.9 Type 2 diabetes mellitus without complications (principal)
CPT/HCPCS: 36415; 83036

== ENCOUNTER 2024-07-19 13:48 | Emergency (ER) | payer OTHER, SELFPAY ==
[2024-07-19 14:25] VITALS: BP 195/79; PULSE 87; RESP 18; TEMP 36.8; O2SAT 98; BMI 21.9
--- NOTE | 2024-07-19 14:31 | DI.RAD.S_ITS ---
PROCEDURE: XR KNEE LT 3V INDICATIONS: fall/knee pain TECHNIQUE: 3 views of the knee were acquired. COMPARISON: None. FINDINGS: Bones: No fractures or dislocations. No suspicious bony lesions. Severe patellofemoral joint space narrowing at the lateral articular surface. Quadriceps insertion enthesophyte. Medial and lateral compartment marginal osteophytes. Soft tissues: Large suprapatellar joint effusion. Mild atheromatous calcification. IMPRESSION: 1. Large suprapatellar joint effusion. 2. 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 Dictated by: Reji Leyva M.D. on 07/19/2024 at 16:14 Approved by: Reji Leyva M.D. on 07/19/2024 at 16:16
--- NOTE | 2024-07-19 14:39 | DI.CT.S_ITS ---
PROCEDURE: CT FACIAL BONES WO CON INDICATIONS: fall/hit face/broken teeth TECHNIQUE: Noncontrast 2.5 mm thick axial images acquired from the mandible through the frontal sinuses, with coronal and sagittal reformatting. For radiation dose reduction, the following was used: automated exposure control, adjustment of mA and/or kV according to patient size. COMPARISON: None. FINDINGS: Image quality: Excellent. Bones and teeth: Orbital saldana are intact. Sinus saldana show no fracture or deformity. Nasal bones and septum are intact. Visualized portions of the mandible demonstrate no fractures or subluxation. Zygomatic arches are intact. Pterygoid plates are intact. Visualized portions of the skull base and auditory canals are intact. Dental reconstruction surgery has been performed. Sinuses: Paranasal sinuses are aerated, without fluid levels, mucosal thickening, or mucoceles. Mastoid air cells are aerated. Soft tissues: No edema, masses, or fluid collections. No enlarged lymph nodes. No soft tissue lacerations or debris. Vascular: Visualized vascular structures appear normal in the absence of contrast. Bony vascular foramina and canals are intact. IMPRESSION: No displaced fractures. No air-fluid levels. Dictated by: Daniel Newell M.D. on 07/19/2024 at 15:23 Approved by: Daniel Newlel M.D. on 07/19/2024 at 15:25
--- NOTE | 2024-07-19 15:18 | ED_ITS ---
<Statement entered by Pro Reynolds, - 07/21/24 10:48> Dr. Reynolds: I was immediately available in the department for consultation. I did not actually see the patient. HPI - Fall General Chief Complaint: Fall Stated Complaint: tripped and fell at work needs CT per [facility] Time Seen by Provider: 07/19/24 15:15 Source: patient Mode of arrival: Ambulatory History of Present Illness HPI Narrative: Ms. Klein is a very pleasant 64-year-old female with a past medical history of diabetes on metformin who presents to the emergency department for trip and fall causing facial injury that occurred around 7:30 a.m. this morning. Patient states she was working at [employer] when she accidentally tripped on a small table causing her to fall forward landing on her left knee and her face. She chipped her front 2 teeth (artificial bridges) and sustained pain of the left knee and the right shoulder/lateral neck region. States that at this time she is also having a frontal headache, she took Tylenol around 8:00 a.m. this morning after the fall occurred. She reports a small laceration on her upper lip. She denies chest pain, shortness of breath, dizziness, lightheadedness, loss of consciousness, nausea or vomiting, blood thinner use. She ambulates independently but with pain of the left knee. Related Data Home Medications Medication Instructions Recorded Confirmed CHOLECALCIFEROL (VITAMIN D3) ##0 02/09/13 07/19/24 (Vitamin D3) [CENTRUM] ##0 02/09/13 07/19/24 aspirin 81 mg chewable tablet 81 mg PO QDAY ##0 02/09/13 07/19/24 Fish oil PO 07/19/24 07/19/24 glimepiride 2 mg tablet mg PO DAILY 07/19/24 07/19/24 hydrochlorothiazide 25 mg tablet mg PO DAILY 07/19/24 07/19/24 lisinopril 20 mg tablet mg PO DAILY 07/19/24 07/19/24 metformin 500 mg tablet mg PO 07/19/24 07/19/24 pravastatin 20 mg tablet mg PO DAILY 07/19/24 07/19/24 Allergies Allergy/AdvReac Type Severity Reaction Status Date / Time latex Allergy Mild Verified 07/19/24 13:37 Penicillins Allergy Unknown Verified 07/19/24 13:37 Review of Systems Review of Systems ROS Unobtainable: All systems reviewed & are unremarkable except as noted in HPI and below Patient History Social History household members: spouse Smoking Status: Never smoker alcohol intake: never Smoking Status: Never smoker Exam Narrative Exam Narrative: GENERAL: 64 year old patient appears stated age. Well-developed patient, in no acute distress. HEAD: Atraumatic. Normocephalic. EYES: PERRL. Extraocular motions intact. No scleral icterus. No injection or drainage. ENT: Tooth 8 is chipped horizontally, slight chip of tooth 7. As well. These are artificial teeth. Teeth are not loose. Very small superficial laceration on the mucosal surface of the upper lip in the center. Nose without bleeding, p urulent drainage. Throat without erythema, tonsillar hypertrophy or exudate. Airway patent. NECK: Trachea midline. Cervical ROM intact. No midline spinal tenderness or pain with range of motion. CARDIOVASCULAR: Regular rate and rhythm. RESPIRATORY: ?Nonlabored respirations. ?Speaking in clear, full sentences. ?Clear to auscultation. Breath sounds equal bilaterally. No wheezes, rales, or rhonchi. ? EXTREMITIES: Tenderness to palpation of anterior left knee and pain with flexion and extension of left knee. No obvious deformities. Diffuse swelling left knee. She ambulates independently but with limp. No tenderness to palpation of bilateral wrists, elbows, shoulders, ankles hips BACK: No midline spinal tenderness. She does have slight reported soreness on right superior trapezius. NEURO: AOx3. ?Clear speech. ?Moves all 4 extremities appropriately within limits of left knee injury. Initial Vital Signs Initial Vital Signs: Vital Signs Temperature 98.2 F 07/19/24 14:25 Pulse Rate 87 07/19/24 14:25 Respiratory Rate 18 07/19/24 14:25 Blood Pressure 195/79 H 07/19/24 14:25 Pulse Oximetry 98 07/19/24 14:25 Oxygen Delivery Method Room Air 07/19/24 14:25 Course Orders Ordered: ED Orders 07/19/24 14:31 XR knee LT 3V Stat 07/19/24 14:39 CT facial bones wo con Stat 07/19/24 15:55 CT head/brain wo con Stat Discontinued Medications Acetaminophen (Acetaminophen 325 Mg Tablet) 975 mg PO NOW ONE Stop: 07/19/24 15:56 Last Admin: 07/19/24 16:06 Dose: 975 mg Documented By: RB Vital Signs Vital signs: Vital Signs - 8 hr 07/19/24 14:25 07/19/24 16:11 Temperature 98.2 F 98.1 F Pulse Rate 87 80 Respiratory Rate 18 18 Blood Pressure 195/79 H 182/77 H Pulse Oximetry 98 98 Oxygen Delivery Method Room Air Room Air MDM - Fall Medical Records Attestation: I reviewed the patient's medical records. Imaging Data Left Knee X-Ray: Radiologist's Impression: PROCEDURE: XR KNEE LT 3V INDICATIONS: fall/knee pain TECHNIQUE: 3 views of the knee were acquired. COMPARISON: None. FINDINGS: Bones: No fractures or dislocations. No suspicious bony lesions. Severe patellofemoral joint space narrowing at the lateral articular surface. Quadriceps insertion enthesophyte. Medial and lateral compartment marginal osteophytes. Soft tissues: Large suprapatellar joint effusion. Mild atheromatous calcification. IMPRESSION: 1. Large suprapatellar joint effusion. 2. 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 CT scan - head: Radiologist's Impression: PROCEDURE: CT HEAD/BRAIN WO CON INDICATIONS: fall onto face this AM with headache TECHNIQUE: Noncontrast 4.5 mm thick angled axial sections acquired from the foramen magnum to the vertex, with coronal and sagittal reformats. For radiation dose reduction, the following was used: automated exposure control, adjustment of mA and/or kV according to patient size. COMPARISON: None. FINDINGS: Image quality: Diagnostic. CSF spaces: Basal cisterns are patent. No extra-axial fluid collections. Ventricles are normal in size and shape. Brain: No midline shift. No intracranial masses or hemorrhage. Spaulding-white matter interface is normal. Skull and face: Calvarium and visualized facial bones are intact, without suspicious lesions. Sinuses: Visualized sinuses and mastoids are clear. IMPRESSION: No acute intracranial pathology. CT scan face: Radiologist's Impression: PROCEDURE: CT FACIAL BONES WO CON INDICATIONS: fall/hit face/broken teeth TECHNIQUE: Noncontrast 2.5 mm thick axial images acquired from the mandible through the frontal sinuses, with coronal and sagittal reformatting. For radiation dose reduction, the following was used: automated exposure control, adjustment of mA and/or kV according to patient size. COMPARISON: None. FINDINGS: Image quality: Excellent. Bones and teeth: Orbital saldana are intact. Sinus saldana show no fracture or de formity. Nasal bones and septum are intact. Visualized portions of the mandible demonstrate no fractures or subluxation. Zygomatic arches are intact. Pterygoid plates are intact. Visualized portions of the skull base and auditory canals are intact. Dental reconstruction surgery has been performed. Sinuses: Paranasal sinuses are aerated, without fluid levels, mucosal thickening, or mucoceles. Mastoid air cells are aerated. Soft tissues: No edema, masses, or fluid collections. No enlarged lymph nodes. No soft tissue lacerations or debris. Vascular: Visualized vascular structures appear normal in the absence of contrast. Bony vascular foramina and canals are intact. IMPRESSION: No displaced fractures. No air-fluid levels. MDM Narrative Medical decision making narrative: 64-year-old female with a past medical history of diabetes on metformin who presents to the emergency department for trip and fall causing facial injury that occurred around 7:30 a.m. this morning. Reports TDap is UTD. Differential diagnosis includes but is not limited to dental fracture, facial trauma, fracture, intracranial injury, concussion, closed head injury, knee fracture, knee sprain, knee strain, traumatic bursitis, etc. On exam patient is in no acute distress, nontoxic appearing, vital signs mariama ropriate except for elevated blood pressure of 195/79. She is fractures of teeth number 8 and 7, these are artificial teeth, the teeth are not loose, and a small superficial laceration on the upper lip. She is having persistent headache after the trauma and due to her age we will proceed with head CT, face CT, left knee x-ray. We will treat with Tylenol. Head CT reveals no acute intracranial pathology. Face CT reveals no displaced fractures. No air-fluid levels. Left knee x-ray reveals large suprapatellar joint effusion and severe patellofemoral osteoarthritis involving the lateral articular surface. For left knee, I advised ibuprofen, acetaminophen, compressive brace, rice therapy, follow up with Orthopedics. Patient was provided with left knee Nir wrap in the emergency department, she declines crutches. Encouraged she follow up promptly with a dentist for repair of her chipped front teeth, very superficial upper lip laceration will heal by itself just recommended rinsing mo uth out after eating. Discussed with the patient that she needs to follow up with her primary, a dentist, and an orthopedic doctor. She was provided with work note an L and I paperwork filled out. She verbalized understanding of all information and is agreeable to the plan. She is ambulatory. She is stable for discharge home Discharge Plan Departure Patient Disposition: Home Clinical Impression: Prepatellar effusion of left knee, Fractured dental implant, Fall on same level from tripping, Abrasion of intraoral surface of lip, Osteoarthritis of left patellofemoral joint Instructions: DI for Knee Effusion Activity Restrictions/Additional Instructions: Thank you for coming to the emergency department. Today you were evaluated for injuries sustained after a fall. You have a large left knee effusion in addition to fractures of your front teeth and a small lip laceration. Please u se ibuprofen and Tylenol for pain, rinse the mouth after eating, follow up with the dentist for further management of your teeth an orthopedic doctor for further management of your left knee. You may call to schedule an appointment with [facility], to schedule an appointment with Dr. Qiu or 1 of the other providers for further management of your underlying left knee osteoarthritis. Please use RICE therapy for your pain in addition to ibuprofen/acetaminophen. Rest the painful area. Ice the area of pain/swelling for at least 15 minutes, 4x a day. Compress the area of swelling using a brace, wrap, or splint if applied. Elevate the painful or swollen extremity by supporting it above the level of the heart with pillows when sitting or laying. Please take Ibuprofen (Motrin/Advil) or Acetaminophen (Tylenol) for pain. These are available over the counter. You may take Ibuprofen 600 mg every 8 hours with food for pain. You may also take Acetaminophen 650 mg every 4-6 hours for pain. Do not exceed 3000 mg of Tylenol a day as this can cause liver damage. Do not drink alcohol with either of these medications. Please follow up with your primary care doctor within the next 2-3 days for ER follow-up. (If you do not have a PCP you can call [phone]. to schedule an appointment with an [facility] Primary Care Provider) IF YOU DEVELOP ANY NEW OR WORSENING SYMPTOMS, RETURN TO THE ER! Please read the attached instructions, they highlight more specific treatments and interventions for you at home. Thank you for letting me participate in your care, Dana Fernandez, JUANITAC Prescriptions: No Action hydrochlorothiazide 25 mg tablet PO DAILY glimepiride 2 mg tablet PO DAILY pravastatin 20 mg tablet PO DAILY lisinopril 20 mg tablet PO DAILY metformin 500 mg tablet PO Fish oil PO aspirin 81 MG tablet,chewable 81 mg PO QDAY Qty: 0 CHOLECALCIFEROL (VITAMIN D3) (Vitamin D3) Qty: 0 [CENTRUM] Qty: 0 Referrals: Diego Hendricks MD [Primary Care Provider] - Stand Alone Forms: Patient Portal/API/Survey, Work Release Note
--- NOTE | 2024-07-19 15:55 | DI.CT.S_ITS ---
PROCEDURE: CT HEAD/BRAIN WO CON INDICATIONS: fall onto face this AM with headache TECHNIQUE: Noncontrast 4.5 mm thick angled axial sections acquired from the foramen magnum to the vertex, with coronal and sagittal reformats. For radiation dose reduction, the following was used: automated exposure control, adjustment of mA and/or kV according to patient size. COMPARISON: None. FINDINGS: Image quality: Diagnostic. CSF spaces: Basal cisterns are patent. No extra-axial fluid collections. Ventricles are normal in size and shape. Brain: No midline shift. No intracranial masses or hemorrhage. Spaulding-white matter interface is normal. Skull and face: Calvarium and visualized facial bones are intact, without suspicious lesions. Sinuses: Visualized sinuses and mastoids are clear. IMPRESSION: No acute intracranial pathology. Dictated by: Fidencio Hicks M.D. on 07/19/2024 at 16:32 Approved by: Fidencio Hicks M.D. on 07/19/2024 at 16:34
[2024-07-19] MEDS: ACETAMINOPHEN 325 MG TABLET 975 MG PO (16:06)
[2024-07-19 16:11] VITALS: BP 182/77; PULSE 80; RESP 18; TEMP 36.7; O2SAT 98
== END 2024-07-19 17:07 | disposition home or self-care (01) ==
PROVIDERS: Emergency Provider Physician Assistant; PCP Family Medicine
DX: M25.462 Effusion, left knee (principal); S00.511A Abrasion of lip, initial encounter; M17.12 Unilateral primary osteoarthritis, left knee; M27.63 Post-osseointegration mechanical failure of dental implant; W01.0XXA Fall on same level from slipping, tripping and stumbling without subsequent striking against object, initial encounter; E11.9 Type 2 diabetes mellitus without complications; Z79.84 Long term (current) use of oral hypoglycemic drugs
CPT/HCPCS: 70450; 70486; 73562; 99283; 99284

== ENCOUNTER 2024-07-25 03:18 | Emergency (ER) | payer OTHER, SELFPAY ==
[2024-07-25] VITALS (18 sets, daily range): BP systolic 111–214; BP diastolic 54–87; PULSE 63–115; RESP 13–34; TEMP 36.6; O2SAT 97–100; BMI 21.2
--- NOTE | 2024-07-25 03:32 | EKG_ITS ---
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
--- NOTE | 2024-07-25 03:39 | ED.GENADULT ---
HPI - General Adult General Chief complaint: Nausea/Vomiting/Diarrhea Stated complaint: high bp, vomiting Time Seen by Provider: 07/25/24 03:39 Source: patient and family Mode of arrival: Wheelchair History of Present Illness HPI narrative: 64-year-old female with a past medical history of diabetes hypertension presents to the emergency department for high blood pressure. Patient states that she has been having intermittent nausea and vomiting for the past 2 weeks after complaining azithromycin for pneumonia. She also states that her blood pressure has been intermittently elevated in the 170s systolically has seen her primary care doctor and is currently taking new medication, states it is only 2 days since starting the new medication. She denies any headache visual disturbances chest pain shortness of breath fever chills abdominal pain or any other GI/ symptoms. She just states that she feels very nauseous. Related Data Home Medications Medication Instructions Recorded Confirmed CHOLECALCIFEROL (VITAMIN D3) ##0 02/09/13 07/19/24 (Vitamin D3) [CENTRUM] ##0 02/09/13 07/19/24 aspirin 81 mg chewable tablet 81 mg PO QDAY ##0 02/09/13 07/19/24 Fish oil PO 07/19/24 07/19/24 glimepiride 2 mg tablet mg PO DAILY 07/19/24 07/19/24 hydrochlorothiazide 25 mg tablet mg PO DAILY 07/19/24 07/19/24 lisinopril 20 mg tablet mg PO DAILY 07/19/24 07/19/24 metformin 500 mg tablet mg PO 07/19/24 07/19/24 pravastatin 20 mg tablet mg PO DAILY 07/19/24 07/19/24 Allergies Allergy/AdvReac Type Severity Reaction Status Date / Time latex Allergy Mild Verified 07/19/24 13:37 Penicillins Allergy Unknown Verified 07/19/24 13:37 Review of Systems Review of Systems Narrative: General: Denies fever, chills, weight loss HEENT: Denies headache, eye drainage, eye irritation, head trauma, sore throat, voice change Cardiovascular: Positive hypertension, Denies any chest pain, palpitations, shortness of breath, tachycardia Respiratory: Denies any shortness of breath, cough, wheeze, stridor GI/: Positive nausea, Denies any abdominal pain, vomiting, diarrhea, bright red blood per rectum, melanotic stools, urinary frequency, urinary retention, dysuria, hematuria MSK: Denies any joint pain, muscle pains, swelling Skin: Denies any rashes, lesions, discoloration Neuro: Denies any headache, lightheadedness, dizziness, fainting, weakness Psych: Denies SI/HI Patient History Social History household members: spouse Smoking Status: Never smoker alcohol intake: never Smoking Status: Never smoker Exam Narrative Exam Narrative: General: Cooperative, comfortable, well-developed, not in acute distress HEENT: Normocephalic, atraumatic, PERRLA, normal sclera, eyelids normal, Neck: Active full range of motion, atraumatic Chest: Normal to inspection, negative crepitus, no overlying erythema ecchymosis Respiratory: Normal respiratory effort, not in acute respiratory distress, clear to auscultation bilaterally negative cough, wheeze, tachypnea, rhonchi, rales Cardiology: Regular rate rhythm negative gallop, murmur, rubs GI/: Normal to inspection, soft, nonrigid, no tenderness to palpation, exam deferred MSK: Full range of active range of motion of all 4 extremities, atraumatic Skin: No rashes lesions noted Neuro: NIH of 0, no focal deficits Alert awake oriented x3, moves all 4 extremities spontaneously, cranial nerves intact, able to answer all questions appropriately follows commands appropriately Psych: Cooperative, negative suicidal or homicidal ideations Initial Vital Signs Initial Vital Signs: Vital Signs Temperature 97.8 F 07/25/24 03:22 Pulse Rate 77 07/25/24 03:22 Respiratory Rate 17 07/25/24 03:22 Blood Pressure 214/87 H 07/25/24 03:22 Pulse Oximetry 97 07/25/24 03:22 Oxygen Delivery Method Room Air 07/25/24 03:22 Course Orders Ordered: ED Orders 07/25/24 03:21 EKG-12 Lead Stat 07/25/24 03:40 CBC Auto Diff [Complete Blood Count AUTO DIFF] Stat CMP [Comprehensive Metabolic Panel] Stat Cortisol Random Stat Lipase Stat MAG [Magnesium] Stat PHOS [Phosphorous] Stat TSH [Thyroid Stimulating Hormone] Stat Uric Acid Stat 07/25/24 04:16 CT abdomen pelvis w con Stat 07/25/24 04:20 BMP [Basic Metabolic Panel] Stat 07/25/24 04:42 Osmolality, Serum Stat Protein Electro, Random Urine Stat Sodium Urine Random Stat 07/25/24 06:00 BMP [Basic Metabolic Panel] Q107/26/24 06:00 BMP [Basic Metabolic Panel] Q107/27/24 06:00 BMP [Basic Metabolic Panel] Q107/28/24 06:00 BMP [Basic Metabolic Panel] Q1 Sodium Chloride (Hypertonic Saline 3%) 100 mls @ 100 mls/hr IV NOW ONE Stop: 07/25/24 05:49 Last Infusion: 07/25/24 05:32 Dose: Infused Documented By: Admin: 07/25/24 04:54 Dose: 100 mls/hr Documented By: Discontinued Medications Lorazepam (Lorazepam 2 Mg/Ml Inj) 0.5 mg IV NOW ONE Stop: 07/25/24 03:50 Last Admin: 07/25/24 04:20 Dose: 0.5 mg Documented By: Vital Signs Vital signs: Vital Signs - 8 hr 07/25/24 03:22 07/25/24 03:40 07/25/24 03:42 Temperature 97.8 F Pulse Rate 77 76 Respiratory Rate 17 Blood Pressure 214/87 H 205/77 H Pulse Oximetry 97 99 Oxygen Delivery Method Room Air 07/25/24 03:42 Temperature Pulse Rate 77 Respiratory Rate Blood Pressure Pulse Oximetry 99 Oxygen Delivery Method Room Air Medical Decision Making Differential Diagnosis Differential Diagnosis: Hypertension, nausea, vomiting, electrolyte abnormality Lab Data 07/25/24 03:40 07/25/24 04:20 Labs: Lab Results 07/25/24 07/25/24 Range/Units 03:40 04:20 WBC 11.4 H (4.5-11.0) X10^3/uL RBC 4.58 (4.0-5.2) X10^6/uL Hgb 13.1 (12.0-16.0) g/dL Hct 35.8 L (36-46) % MCV 78.0 L (80-100) fL MCH 28.6 (26-34) PG MCHC 36.6 H (30-36) % RDW 12.2 (11.6-14.8) % Plt Count 374 (150-400) X10^3/uL Neut % (Auto) 83.6 H (50-75) % Lymph % (Auto) 10.3 L (25-40) % [place] % (Auto) 5.7 (3-14) % Eos % (Auto) 0.2 L (2-4) % Baso % (Auto) 0.2 (0-2) % Neut # (Auto) 9500 H (2420-4863) /uL Lymph # (Auto) 1200 (6691-3524) /uL [place] # (Auto) 600 (0-900) /uL Eos # (Auto) 0 (0-450) /uL Baso # (Auto) 0 (0-100) /uL Sodium 101 L* 100 L* (137-145) mmol/L Potassium 3.7 3.4 (3.4-5.1) mmol/L Chloride 68 L* 68 L* (98-107) mmol/L Carbon Dioxide 20 L 19 L (22-32) mmol/L BUN 9 9 (7-17) mg/dL Creatinine 0.43 L 0.41 L (0.52-1.04) mg/dL Estimated GFR > 60 > 60 (>60) mL/min BUN/Creatinine Ratio 20.9 22.0 (6-22) Glucose 164 H 144 H (80-110) mg/dL Calcium 8.6 8.5 (8.4-10.2) mg/dL Magnesium 1.5 L (1.6-2.3) mg/dL Total Bilirubin 1.9 H (0.2-1.3) mg/dL AST 40 H (14-36) IU/L ALT 39 H (<35) IU/L Alkaline Phosphatase 83 (38-126) U/L Total Protein 7.7 (6.3-8.2) g/dL Albumin 4.7 (3.5-5.0) g/dL Globulin 3.0 (1.7-4.1) g/dL Albumin/Globulin Ratio 1.6 (1.0-2.8) Lipase 792 H (23-300) U/L ECG Data Interpretation: EKG interpreted by ED physician sinus 76 beats per minute QTC [address] changes no STEMI MDM Narrative Medical decision making narrative: 74-year-old female with a history of hypertension diabetes presents for hypertension and nausea vomiting. She states that she has been having intermittent nausea and vomiting for the past 2 weeks after she completed her course of azithromycin for pneumonia. She states that she has seen her primary care doctor and is currently changing medications for her high blood pressure, states that she is on day 2 of this medication. She states that her high blood pressure readings has been 170 systolically but given persistent hypertension and intermittent nausea vomiting wanted to be evaluated here in the emergency department. She denies any other symptoms such as headache visual disturbances chest pain shortness of breath fever chills abdominal pain or any other GI/ symptoms time. Patient's EKG nonischemic in nature lab work was performed here. 0444: Discussed case with apprentice technician Dr. Jeffery, recommending hypertonic saline at 100 cc given over 30 minutes, states to recheck the BMP every hour with a goal of 104-105, states to not exceed 106 in the next 24 hours. He states to repeat the bolus until sodium at 104/105. Recommending transfer to ICU level care with Nephrology available 0450: Patient and family was updated in regards to need for transfer to higher level of care, they understand and agree with this plan. 0505: Had a discussion with the transfer center at [facility], states will call back with ICU doctor for admission 0546: Discussed case with ICU doctor Dr. Moreland, at [facility], she states that she will tentatively accept the patient however will not initiate transfer until patient received CT scan of the head and chest. Discharge Plan Departure Patient Disposition: [facility] Clinical Impression: Acute hyponatremia Prescriptions: No Action hydrochlorothiazide 25 mg tablet PO DAILY glimepiride 2 mg tablet PO DAILY pravastatin 20 mg tablet PO DAILY lisinopril 20 mg tablet PO DAILY metformin 500 mg tablet PO Fish oil PO aspirin 81 MG tablet,chewable 81 mg PO QDAY Qty: 0 CHOLECALCIFEROL (VITAMIN D3) (Vitamin D3) Qty: 0 [CENTRUM] Qty: 0 Referrals: Diego Hendricks MD [Primary Care Provider] -
[2024-07-25 03:55] LABS: Add Manual Diff / Slide Review NO; Basophils Absolute Auto 0 /uL (0-100); Basophils Percent Auto 0.2 % (0-2); Eosinophils Absolute Auto 0 /uL (0-450); Eosinophils Percent Auto 0.2 % (2-4); Hematocrit 35.8 % (36-46); Hemoglobin 13.1 g/dL (12.0-16.0); Lymphocytes Absolute Auto 1200 /uL (1100-4500); Lymphocytes Percent Auto 10.3 % (25-40); Mean Corpuscular HGB Conc 36.6 % (30-36); Mean Corpuscular Hemoglobin 28.6 PG (26-34); Monocytes Absolute Auto 600 /uL (0-900); Monocytes Percent Auto 5.7 % (3-14); Neutrophils Absolute Auto 9500 /uL (1500-7000); Neutrophils Percent Auto 83.6 % (50-75); Platelet Count 374 X10^3/uL (150-400); Red Blood Cell Count 4.58 X10^6/uL (4.0-5.2); Red Cell Distribution Width 12.2 % (11.6-14.8); White Blood Cell Count 11.4 X10^3/uL (4.5-11.0)
[2024-07-25 04:04] LABS: Alanine Aminotransferase 39 IU/L (<35); Albumin 4.7 g/dL (3.5-5.0); Albumin Globulin Ratio 1.6 (1.0-2.8); Alkaline Phosphatase 83 U/L (38-126); Aspartate Aminotransferase 40 IU/L (14-36); BUN Creatinine Ratio 20.9 (6-22); Bilirubin Total 1.9 mg/dL (0.2-1.3); Blood Urea Nitrogen 9 mg/dL (7-17); Calcium 8.6 mg/dL (8.4-10.2); Carbon Dioxide 20 mmol/L (22-32); Estimated Glomerular Filt Rate > 60 mL/min (>60); Glucose 164 mg/dL (80-110); HEMOLYSIS < 15 (0-50); Lipase 792 U/L (23-300); Magnesium 1.5 mg/dL (1.6-2.3); Potassium 3.7 mmol/L (3.4-5.1); Total Protein 7.7 g/dL (6.3-8.2)
[2024-07-25 04:13] LABS: Chloride 68 mmol/L (98-107); Sodium 101 mmol/L (137-145)
--- NOTE | 2024-07-25 04:16 | DI.CT.S_ITS ---
PROCEDURE: CT ABDOMEN PELVIS W CON INDICATIONS: elevated lipase, n/v TECHNIQUE: After the administration of intravenous contrast, axial sections acquired from the lung bases to the pubic symphysis. Coronal and sagittal reformats were performed. For radiation dose reduction, the following was used: automated exposure control, adjustment of mA and/or kV according to patient size. COMPARISON: None. FINDINGS: Image quality: Diagnostic. Lower Chest: No significant findings. ABDOMEN: Liver: No solid mass. Gallbladder: Absent. Biliary ducts: No biliary dilation. Pancreas: No ductal dilation. No peripancreatic fluid collection. Spleen: Size is within normal limits. Adrenal Glands: No adrenal nodules. Kidneys and Ureters: No hydronephrosis. No solid mass. No complex renal cystic lesion which requires follow up. Stomach and Bowel: Normal colonic caliber, without significant wall thickening. Normal appendix. No small bowel obstruction. Peritoneum: No abnormal intraperitoneal fluid. No free air. Ventral Wall: No significant ventral hernia. Abdominal Nodes: No retroperitoneal or mesenteric adenopathy by size criteria. Vessels: Aorta and inferior vena cava are normal in size. Calcified atherosclerotic plaque. PELVIS: Pelvic Organs: Anteverted uterus. Bladder: No bladder wall thickening. Distended. No stone.. Pelvic Nodes: No enlarged lymph nodes. Miscellaneous: No inguinal hernias are seen. Bones: No aggressive osseous abnormality. Minimal sclerosis at the posterior spinous process of L4. IMPRESSION: No acute inflammatory process is identified. No peripancreatic fluid. This report is concordant with the overnight preliminary interpretation. Dictated by: Jhonny Bell M.D. on 07/25/2024 at 8:01 Approved by: Jhonny Bell M.D. on 07/25/2024 at 8:09
[2024-07-25] MEDS: LORazepam 2 MG/ML INJ 0.5 MG IV (04:20)
[2024-07-25 04:39] LABS: Blood Urea Nitrogen 9 mg/dL (7-17); Calcium 8.5 mg/dL (8.4-10.2); Carbon Dioxide 19 mmol/L (22-32); Estimated Glomerular Filt Rate > 60 mL/min (>60); Glucose 144 mg/dL (80-110); HEMOLYSIS < 15 (0-50); Potassium 3.4 mmol/L (3.4-5.1)
[2024-07-25 04:42] LABS: Chloride 68 mmol/L (98-107); Sodium 100 mmol/L (137-145)
[2024-07-25] MEDS: SODIUM CHLORIDE 3 % 100 ML IV (04:54)
[2024-07-25 06:01] LABS: Thyroid Stimulating Hormone 0.422 uIU/mL (0.47-4.68)
--- NOTE | 2024-07-25 06:01 | DI.CT.S_ITS ---
PROCEDURE: CT HEAD/BRAIN WO CON INDICATIONS: hyponatremia TECHNIQUE: Noncontrast 4.5 mm thick angled axial sections acquired from the foramen magnum to the vertex, with coronal and sagittal reformats. For radiation dose reduction, the following was used: automated exposure control, adjustment of mA and/or kV according to patient size. COMPARISON: [facility], CT, CT HEAD/BRAIN WO CON, 07/19/2024, 16:03. FINDINGS: Image quality: Diagnostic. CSF spaces: Basal cisterns are patent. No extra-axial fluid collections. Ventricles are normal in size and shape. Brain: No midline shift. No intracranial masses or hemorrhage. Subtle basal ganglia calcifications, unchanged. Spaulding-white matter interface is normal. Skull and face: Calvarium and visualized facial bones are intact, without suspicious lesions. Sinuses: Visualized sinuses and mastoids are clear. IMPRESSION: No acute intracranial pathology. This report is concordant with the overnight preliminary interpretation. Dictated by: Jhonny Bell M.D. on 07/25/2024 at 8:17 Approved by: Jhonny Bell M.D. on 07/25/2024 at 8:20
--- NOTE | 2024-07-25 06:01 | DI.CT.S_ITS ---
PROCEDURE: CT CHEST W CON INDICATIONS: hyponatremia TECHNIQUE: After the administration of intravenous contrast, 5 mm thick sections acquired from the pulmonary apices to the posterior costophrenic angles. 1 mm axial lung, 5 mm thick coronal and sagittal reformats and 7 mm axial MIP were acquired. For radiation dose reduction, the following was used: automated exposure control, adjustment of mA and/or kV according to patient size. COMPARISON: [facility], CT, CT ABDOMEN PELVIS W CON, 07/25/2024, 4:20. FINDINGS: Image quality: Diagnostic. Lower Neck: No enlarged lymph nodes. Small collaterals at the left neck. Thyroid: No thyroid nodules which require sonographic follow up, per consensus guidelines. Axillae: No enlarged lymph nodes. Chest Wall: Unremarkable. Bones: No suspicious osseous abnormality. Lungs and Pleura: No pneumothorax or pleural effusions. No consolidation or suspicious nodules. Minimal thickening at the left major fissure. Minimal dependent atelectasis. Central airways are clear. Heart: Heart size is normal. Moderate to severe coronary artery calcifications. No pericardial effusion. Thoracic Vessels: The aorta and pulmonary arteries demonstrate normal size. No central pulmonary embolism. Mediastinum and Felisha: No enlarged lymph nodes. Esophagus: No wall thickening appreciated. No hiatal hernia. Upper Abdomen: Visualized upper abdomen solid organs and bowel loops appear normal. IMPRESSION: 1. No significant acute airspace opacity. No pleural effusion. 2. No mass or significant pulmonary nodules. No adenopathy. Minor discrepancy with the overnight preliminary interpretation. Low suspicion for esophagitis. No significant fluid is seen within the esophagus. The CT abdomen pelvis earlier today demonstrated fluid within the stomach which has progressed distally into the bowel. Stomach is not distended. No significant esophageal wall thickening is appreciated. Dictated by: Jhonny Bell M.D. on 07/25/2024 at 8:20 Approved by: Jhonny Bell M.D. on 07/25/2024 at 8:30
[2024-07-25 06:08] LABS: Phosphorous 2.8 mg/dL (2.8-4.1); Uric Acid 2.3 mg/dL (2.5-6.2)
[2024-07-25 06:39] LABS: Cortisol Random 27.8 ug/dL
[2024-07-25 07:18] LABS: BUN Creatinine Ratio 20.9 (6-22); Blood Urea Nitrogen 9 mg/dL (7-17); Calcium 7.9 mg/dL (8.4-10.2); Carbon Dioxide 21 mmol/L (22-32); Estimated Glomerular Filt Rate > 60 mL/min (>60); Glucose 118 mg/dL (80-110); HEMOLYSIS < 15 (0-50); Potassium 3.4 mmol/L (3.4-5.1)
[2024-07-25 07:19] LABS: Chloride 71 mmol/L (98-107); Sodium 101 mmol/L (137-145)
[2024-07-25] MEDS: SODIUM CHLORIDE 3 % 100 ML 200 ML IV (07:24)
[2024-07-25 08:23] LABS: Sodium Urine Random 15 mmol/L (30-90)
--- NOTE | 2024-07-25 08:37 | PC.NURSE ---
Lab made aware of BMP being sent and MD requesting results back by 0900. Diann in lab aware.
[2024-07-25 08:54] LABS: BUN Creatinine Ratio 17.4 (6-22); Blood Urea Nitrogen 8 mg/dL (7-17); Calcium 8.3 mg/dL (8.4-10.2); Carbon Dioxide 21 mmol/L (22-32); Chloride 77 mmol/L (98-107); Estimated Glomerular Filt Rate > 60 mL/min (>60); Glucose 112 mg/dL (80-110); HEMOLYSIS < 15 (0-50); Potassium 3.4 mmol/L (3.4-5.1)
[2024-07-25 08:57] LABS: Sodium 108 mmol/L (137-145)
[2024-07-25] MEDS: DESMOPRESSIN 4 MCG/ML AMPUL 1 MCG IV (09:27)
[2024-07-26 10:12] LABS: Osmolality, Serum 212 mOsmol/kg (280-301)
[2024-07-30 15:08] LABS: Alpha-1 Globulin, Ur 2.1 % (.); Beta Globulin, Ur 18.7 % (.); Gamma Globulin, Ur 12.3 % (.); M-Spike % Comment: % (Not Observed); Urine Total Protein 6.4 mg/dL (Not Estab.)
== END 2024-07-25 09:30 | disposition short-term general hospital (02) ==
PROVIDERS: Student in an Organized Health Care Education/Training Program; Emergency Provider Emergency Medicine; PCP Family Medicine
DX: E87.1 Hypo-osmolality and hyponatremia (principal); R11.2 Nausea with vomiting, unspecified
CPT/HCPCS: 36415; 70450; 71260; 74177; 80048; 80053; 82533; 83690; 83735; 83930; 84100; 84156; 84166; 84300; 84443; 84550; 85025; 93005; 96361; 96374; 96375; 99285; J2060; Q9967

== ENCOUNTER → 2025-03-21 14:50 | Outpatient (CLI) | payer OTHER, SELFPAY ==
--- NOTE | 2025-03-21 | DI.RAD.S_ITS ---
PROCEDURE: XR DEXA AXIAL SKELETON INDICATIONS: postmenopausal screening COMPARISON: None. FINDINGS: Lumbar Spine: Bone mineral density 0.982 g/cm2, T score -0.5. Left Femoral Neck: Bone mineral density 0.679 g/cm2, T score -1.5. Left Hip: Bone mineral density 0.857 g/cm2, T score -0.7. Fracture Risk Calculation (when applicable): 10-year fracture risk of a major osteoporotic fracture 8.2 percent and of a hip fracture 1.0 percent. (T score greater or equal to -1.0 to: NORMAL) (T score from -1.1 to -2.4: OSTEOPENIA) (T score less than or equal to -2.5: OSTEOPOROSIS) IMPRESSION: Osteopenia--- recommend repeat DEXA in 2-3 years for reassessment. Follow-up guidelines as follows: Osteoporosis: Consider a repeat DEXA and Vertebral Fracture Assessment (VFA) exam in 2 years or sooner if medically necessary, to reassess this patient's status. Osteopenia: Consider a repeat DEXA in 2-3 years to reassess this patient's status, or if there is a new clinical indication. Normal: Consider a repeat DEXA in 5 years or sooner, or if there is a new clinical indication. All treatment decisions require clinical judgment and consideration of individual patient factors, including patient preferences, comorbidities, previous drug use, risk factors not captured in the FRAX model (e.g., frailty, falls, vitamin D deficiency, increased bone turnover, interval significant decline in bone density ) and possible under- or over-estimation of fracture risk by FRAX. In addition, the NOF Guide recommends that FDA-approved medical therapies be considered in postmenopausal women and men age >= 50 years with a: * Hip or vertebral (clinical or morphometric) fracture * T-score of <=-2.5 at the spine or hip * Ten-year fracture probability by FRAX of >= 3% for hip fracture or >=20% for major osteoporotic fracture. Dictated by: Prince Crooks M.D. on 03/21/2025 at 19:18 Approved by: Prince Crooks M.D. on 03/21/2025 at 19:20
== END ==
LOC: RAD 14:50
PROVIDERS: PCP Family Medicine; Referring Provider Family Medicine; Visit Provider Family Medicine
DX: M85.852 Other specified disorders of bone density and structure, left thigh (principal); Z78.0 Asymptomatic menopausal state
CPT/HCPCS: 77080

== ENCOUNTER → 2025-04-23 16:47 | Outpatient (CLI) | payer OTHER, SELFPAY ==
--- NOTE | 2025-04-23 16:49 | DI.MG.S_ITS ---
MM screening mammo BI: 04/23/2025. BI-RADS: 1 CLINICAL: 64-year old female for bilateral screening mammogram. Tyrer-Cuzick lifetime risk of 6.0%. No personal or first-degree family history of breast cancer. The patient had a prior left breast biopsy. PRIOR EXAMS 05/07/2024, 03/28/2024, 11/18/2021, 07/22/2020, MAMMOGRAPHY TECHNIQUE: 2D and 3D (tomosynthesis) digital mammographic views obtained, with additional images as needed for full coverage. Current study was also evaluated with a Computer Aided Detection (CAD) system. DENSITY C. The breasts are heterogeneously dense, which may obscure small masses. MAMMOGRAPHY FINDINGS Bilateral: No suspicious mass, asymmetry, microcalcification, or other abnormality seen. IMPRESSION: * No evidence of malignancy. RECOMMENDATIONS Bilateral * Annual screening mammography. OVERALL ASSESSMENT CATEGORY BI-RADS-1: Negative. The [employer] recommends annual screening mammography beginning at age 40 for women with average risk of breast cancer. ELECTRONICALLY SIGNED: Cal Bedoya M.D. on 04/24/2025 at 10:56:07 AM PT Interpreting Station ID: [id number]
== END ==
LOC: MAMMO 16:49
PROVIDERS: PCP Family Medicine; Referring Provider Family Medicine; Visit Provider Family Medicine
DX: Z12.31 Encounter for screening mammogram for malignant neoplasm of breast (principal); R92.333 Mammographic heterogeneous density, bilateral breasts
CPT/HCPCS: 77063; 77067